=== PATIENT | male | born 1960 | race Hispanic/Latino ===

== ENCOUNTER 2020-04-12 13:10 | Outpatient (CLI) | payer OTHER ==
--- NOTE | 2020-04-12 13:55 | RAD ---
PA AND LATERAL VIEWS OF THE CHEST: 04/12/20 HISTORY: Dyspnea. COMPARISON: 09/08/14. FINDINGS: The heart size is normal. The aorta is tortuous. The lungs are well expanded without lobar consolidat ion, pneumothoraces or pleural effusions. No acute osseous abnormalities are seen. IMPRESSION: No radiographic evidence of acute cardiopulmonary process. POS: OFF
== END 2020-04-12 13:11 | disposition home or self-care (01) ==
LOC: BICRAD 13:10
PROVIDERS: ATTEND Internal Medicine Pulmonary Disease
DX: R06.00 Dyspnea, unspecified (principal)
CPT/HCPCS: 71046